=== PATIENT | female | born 1960 | race Caucasian/White ===

== ENCOUNTER 2021-09-18 12:35 | Emergency (ER) | payer OTHER ==
[~2021-09-18] VITALS: Ht 157.5 cm; Wt 58.1 kg
--- NOTE | 2021-09-18 12:35 | NUR ---
1231--ARRIVAL TO ED, CPR IN PROGRESS. ACLS PROTOCOL CONTINUED BY ED STAFF. SEE CODE SHEET.
--- NOTE | 2021-09-18 12:50 | NUR ---
TIME OF PRONOUNCED BY DR RIVAS.
[2021-09-18 12:54] VITALS: BP 0/0
--- NOTE | 2021-09-18 13:02 | NUR ---
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
--- NOTE | 2021-09-18 13:03 | NUR ---
[facility] CONTACTED -- REFERENCE NUMBER GIVEN: [id number]
--- NOTE | 2021-09-18 13:10 | NUR ---
[facility] BACK [facility]. INFORMATION PROVIDED. CONSTRUCTION COST ESTIMATOR TO CONTACT FAMILY AND RETURN CALL TO ED.
--- NOTE | 2021-09-18 13:42 | NUR ---
[facility]. [facility]LEASED. VENDING MACHINE ATTENDANT OFFICE WILL NOT PURSUE CASE.
--- NOTE | 2021-09-18 15:40 | NUR ---
PT MOVED TO 128, AWAITING MORTUARY
--- NOTE | 2021-09-18 19:00 | NUR ---
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 PTS CHART WITH HOUSE SUP.
== END 2021-09-18 12:50 ==
LOC: MED 12:35
DX: I46.9 Cardiac arrest, cause unspecified (principal); E11.65 Type 2 diabetes mellitus with hyperglycemia; E11.22 Type 2 diabetes mellitus with diabetic chronic kidney disease; N18.6 End stage renal disease; Z99.2 Dependence on renal dialysis
CPT/HCPCS: 31500; 31605; 92950; 99291